=== PATIENT | male | born 1995 | race African-American/Black ===

== ENCOUNTER 2020-10-16 15:48 | Emergency (ER) | payer SELFPAY ==
[2020-10-16 15:56] VITALS: BP 152/79; PULSE 88; TEMP 98.2; BMI 27.8
== END 2020-10-16 16:42 | disposition home or self-care (01) ==
LOC: JERFT 15:48
DX: S80.01XA Contusion of right knee, initial encounter (principal)
CPT/HCPCS: 73562-TC-RT-FY; 99283-25